=== PATIENT | female | born 1950 | race Caucasian/White ===

== ENCOUNTER 2019-05-24 08:18 | Day surgery (SDC) | payer MEDICARE, BC ==
[~2019-05-24] VITALS: Ht 152.4 cm; Wt 91.0 kg
[~2019-05-24 08:18] MED LIST: ALPR.25 PO; Aspirin EC81 MG PO; BYDUREON P2 MG/0.65 SC; Bactrim Ds Tab1 EACH PO; CALCIUM 600 +1 EA11 PO; EZET10 PO; FISH OIL 1,0001 EAC1 PO; GLIM4 PO; GLUCOSA-CHOND-1 EACH PO; IRBE150 PO; METFORMIN HCL500 MG PO; METO50ER PO; PIOGLITAZONE HC30 MG PO; SPIR25 PO; VALSARTAN160 MG PO
== END 2019-05-24 10:25 | disposition home or self-care (01) ==
LOC: ORSCSDS 08:18
PROVIDERS: Internal Medicine Gastroenterology
PROC: 0DJD8ZZ Inspection of Lower Intestinal Tract, Via Natural or Artificial Opening Endoscopic (ICD-10-PCS; principal; 2019-05-24 09:30)
DX: Z12.11 Encounter for screening for malignant neoplasm of colon (principal); Z86.010 Personal history of colon polyps; K57.30 Diverticulosis of large intestine without perforation or abscess without bleeding; K64.8 Other hemorrhoids; E11.9 Type 2 diabetes mellitus without complications; I10 Essential (primary) hypertension; E78.5 Hyperlipidemia, unspecified; Z79.82 Long term (current) use of aspirin; Z79.84 Long term (current) use of oral hypoglycemic drugs; Z79.899 Other long term (current) drug therapy
CPT/HCPCS: 82947; J2704; J7120

== ENCOUNTER → 2019-05-26 | Outpatient (CLI) | payer MEDICARE, BC ==
[2019-05-30 16:06] LABS: HPV 16 Negative (Negative); HPV 18 Negative (Negative); HPV OTHER HR TYPES Negative (Negative)
== END | disposition home or self-care (01) ==
LOC: LAB SHORT 10:45 → LAB 10:45
PROVIDERS: Obstetrics & Gynecology
DX: Z01.419 Encounter for gynecological examination (general) (routine) without abnormal findings (principal)
CPT/HCPCS: 87624; G0123

== ENCOUNTER 2020-05-15 06:15 | Day surgery (SDC) | payer MEDICARE, BC ==
[~2020-05-15] VITALS: Ht 154.9 cm; Wt 94.8 kg
[~2020-05-15 06:15] MED LIST changes: +Diovan160 MG PO; +FISH OIL 1,2001 EAC7 PO; +METF500 PO; +PIOG30 PO; +PRAV20 PO; +Vitamin D2000 UNIT PO
--- NOTE | 2020-05-15 07:46 | NUR ---
05/15/20 0746 Sima Bernal, LEFT RAIL UP.
== END 2020-05-15 08:10 | disposition home or self-care (01) ==
LOC: ORSCSDS 06:15
PROVIDERS: Orthopaedic Surgery
PROC: 01N50ZZ Release Median Nerve, Open Approach (ICD-10-PCS; principal; 2020-05-15 07:30)
DX: G56.01 Carpal tunnel syndrome, right upper limb (principal); I10 Essential (primary) hypertension; E66.01 Morbid (severe) obesity due to excess calories; Z68.39 Body mass index [BMI] 39.0-39.9, adult; E11.9 Type 2 diabetes mellitus without complications; Z79.84 Long term (current) use of oral hypoglycemic drugs; Z79.899 Other long term (current) drug therapy
CPT/HCPCS: 82947; J0690; J1100; J2405; J2704; J3010; J7120

== ENCOUNTER → 2022-04-10 | Outpatient (CLI) | payer MEDICARE, BC | END | disposition home or self-care (01) | LOC: LAB 08:54 → LAB SHORT 08:54 → LAB FUT 04-08 11:20 | DX: D64.9 Anemia, unspecified (principal); R79.89 Other specified abnormal findings of blood chemistry | CPT/HCPCS: 81050 ==

== ENCOUNTER → 2023-02-06 | Outpatient (CLI) | payer MEDICARE, BC | END | disposition home or self-care (01) | LOC: LAB SHORT 12:24 → LAB 12:24 | DX: N30.00 Acute cystitis without hematuria (principal) | CPT/HCPCS: 87086 ==

== ENCOUNTER 2024-05-04 07:05 | Day surgery (SDC) | payer MEDICARE, BC ==
[~2024-05-04] VITALS: Ht 152.4 cm; Wt 208.2 kg
[~2024-05-04 07:05] MED LIST changes: +ELIQUIS5 M2; +RYBELSUS3 MG; +SULTRIDS
[2024-05-04] MEDS ORDERED: Lactated Ringer's 1,000 ML IV ONE ×2 (07:30→08:27)
[2024-05-04] MEDS ORDERED: propofoL 50 ML IV ONE (07:57)
[2024-05-04 09:34] VITALS: BP 92/65
== END 2024-05-04 09:26 | disposition home or self-care (01) ==
LOC: ORSCSDS 07:05
PROVIDERS: Specialist
PROC: 0DBK8ZX Excision of Ascending Colon, Via Natural or Artificial Opening Endoscopic, Diagnostic (ICD-10-PCS; principal; 2024-05-04 08:30)
DX: Z12.11 Encounter for screening for malignant neoplasm of colon (principal); Z86.0101 Personal history of adenomatous and serrated colon polyps; D12.2 Benign neoplasm of ascending colon; K57.30 Diverticulosis of large intestine without perforation or abscess without bleeding; K64.8 Other hemorrhoids; I48.91 Unspecified atrial fibrillation; Z79.01 Long term (current) use of anticoagulants; I10 Essential (primary) hypertension; E11.9 Type 2 diabetes mellitus without complications; E78.5 Hyperlipidemia, unspecified; Z79.84 Long term (current) use of oral hypoglycemic drugs; Z79.899 Other long term (current) drug therapy
CPT/HCPCS: 82947; 88305; J2704; J7120

== ENCOUNTER → 2025-07-06 | Outpatient (CLI) | payer MEDICARE, BC ==
[2025-07-06 13:17] LABS: Source, Urine Clean Catch
[2025-07-06 15:49] LABS: Bilirubin, Urine Neg (Neg); Color, Urine Yellow (P-Yellow); Glucose Qualitative, Urine Neg (Neg); Ketones, Urine Neg (Neg); Leukocyte Esterase, Urine Neg (Neg); Protein, Urine 1+ (Neg); Specific Gravity, Urine 1.020 (1.003-1.022); Urobilinogen, Urine NORM (Normal)
[2025-07-06 16:16] LABS: White Blood Cells, Urine 0-2 /hpf (0-5)
[2025-07-06 16:17] LABS: Red Blood Cells, Urine 0-2 /hpf (0-2)
== END ==
LOC: LAB 13:16 → LAB SHORT 13:16
PROVIDERS: Internal Medicine
DX: R35.0 Frequency of micturition (principal)
CPT/HCPCS: 81001

== ENCOUNTER 2025-07-14 06:30 | Day surgery (SDC) | payer MEDICARE, BC ==
[2025-07-14 10:45] VITALS: BP 147/75
== END 2025-07-14 11:48 | disposition home or self-care (01) ==
LOC: ATC 06:30
DX: R39.15 Urgency of urination (principal); R35.1 Nocturia; E11.9 Type 2 diabetes mellitus without complications; I10 Essential (primary) hypertension; E55.9 Vitamin D deficiency, unspecified; I48.0 Paroxysmal atrial fibrillation; K21.9 Gastro-esophageal reflux disease without esophagitis; Z79.84 Long term (current) use of oral hypoglycemic drugs; Z79.01 Long term (current) use of anticoagulants; Z79.899 Other long term (current) drug therapy; Z88.5 Allergy status to narcotic agent; Z88.8 Allergy status to other drugs, medicaments and biological substances
CPT/HCPCS: 51798